=== PATIENT | male | born 2005 | race Caucasian/White ===

== ENCOUNTER 2023-04-25 18:56 | Emergency (ER) | payer OTHER ==
[2023-04-25] MEDS ORDERED: Ibuprofen 200 MG TAB ONE (19:47)
== END 2023-04-25 21:13 | disposition home or self-care (01) ==
LOC: CSHERS 18:56
DX: S60.041A Contusion of right ring finger without damage to nail, initial encounter (principal); F17.290 Nicotine dependence, other tobacco product, uncomplicated; W23.0XXA Caught, crushed, jammed, or pinched between moving objects, initial encounter